=== PATIENT | male | born 1995 | race Caucasian/White ===

== ENCOUNTER 2017-02-10 16:36 | Emergency (ER) | payer BC ==
[~2017-02-10] VITALS: Ht 182.9 cm; Wt 61.0 kg
[2017-02-10 17:12] VITALS: TEMP 37; Ht 182.9 cm; Wt 61.0 kg
--- NOTE | 2017-02-10 17:58 | EMERGENCY ROOM VISIT NOTE ---
ED Visit Note First contact with patient: 17:41 CHIEF COMPLAINT: Chin laceration HISTORY OF PRESENT ILLNESS: This 21-year-old male patient presents emergency department ambulatory, complaining of a laceration to the Chin. The patient states he awoke approximately 2 hours ago, and as he was walking to the bathroom , he tripped over his sweat. He states he fell, striking his chin on the toilet seat. He states he broke his upper left front tooth, and his bottom teeth went through his lip. There was no loss of consciousness, vomiting, or unusual behavior afterwards. Denies neck pain. No headache, nausea, or blurred vision. There is minimal bleeding at this time. The patient rates the pain as throbbing and 5/10. The patient's tetanus shot is up to date. REVIEW OF SYSTEMS: A 6 system review of systems was completed with positives and pertinent negatives listed in the HPI. ALLERGIES: None MEDICATIONS: None PMH: None SOCIAL HISTORY: Is a [employer] student. He [place] campus. The patient denies drug, alcohol, tobacco use. PHYSICAL EXAM: Vital Signs: Reviewed Nurse's notes, vital signs stable. GENERAL : This is a 21-year-old white male, in no acute distress, well-developed, well- nourished. NEURO: The patient is alert and oriented to person place and time. No focal neurological defects. EYES: Pupils are round, equal, and react to light. EOMI. EARS: No hemotympanum. NECK: Supple. No cervical spine tenderness. FACE: No facial bone tenderness or mandibular tenderness. The mouth can open fully. The teeth are well aligned. Tooth #9 is chipped on the medial side. SKIN: There is a 0.5 cm laceration on the lower lip/superior chin , not through the vermilion border. The edges gape apart with traction. There is no active bleeding and no foreign material in the wound. There are no deep structures present. Capillary refill less than two seconds. Normal sensation to light and sharp touch. EMERGENCY DEPARTMENT COURSE: I examined the patient. Verbal consent was obtained to perform the procedure. Using sterile technique the wound was cleansed with Betadine. The area was sterilely draped. 2 ml of 1% buffered lidocaine was used to anesthetize the laceration on the face. Once the patient was anesthetized, the wound was copiously irrigated under pressure with sterile saline. The wound was explored and was as described above. The laceration was repaired using 3 simple interrupted 6-0 nylon sutures with the wound edges being well approximated. The patient tolerated the procedure well. Hemostasis was achieved. The area was cleaned with sterile saline and dressed with bacitracin ointment. The patient was discharged home in good condition. DIFFERENTIAL DIAGNOSIS: Laceration, infection, tooth fracture, closed head injury, concussion, intracranial hemorrhage, and others DIAGNOSIS: Facial laceration Current/Historical Medications Scheduled Penicillin V Potassium (Veetids), 500 MG PO TID Allergies Coded Allergies: No Known Allergies (Unverified , 02/10/17) Vital Signs Date Time Temp Pulse Resp B/P (MAP) Pulse Ox O2 Delivery O2 Flow Rate FiO2 02/10/17 18:54 87 16 102/75 98 02/10/17 17:12 37.0 85 16 110/76 98 Room Air Medications Administered Medications (Trade) Dose Ordered Sig/Ham Route Start Time Stop Time Status Last Admin Dose Admin Penicillin V Potassium (Pen-Vk 500MG Home Pack) 1 homepack UD ONCE PO 02/10/17 18:45 02/10/17 18:46 DC 02/10/17 18:54 1 HOMEPACK Departure Information Impression Primary Impression: Facial laceration Additional Impression: Fracture of tooth Dispostion Home / Self-Care Condition GOOD Prescriptions Penicillin V Potassium (Veetids) 500 Mg Tab 500 MG PO TID for 3 Days, #9 TAB Prov: Caitlin Patrick PA-C 02/10/17 Patient Instructions ED Fx Tooth, ED Laceration Facial Sutr Tape, [facility] Additional Instructions You have received 3 sutures on your lower lip/chin. These sutures are NOT dissolvable and WILL need to be removed by a health care provider in 4-5 days. You can return to the Emergency Department or contact your Primary Care Provider to have the sutures removed. He did have a dental fracture. He should follow-up with a dentist in 2-3 days regarding this. You were prescribed PenVK to be taken three times daily x4 days total. This is an antibiotic. All antibiotics have the potential to cause diarrhea. Stop this medication and contact a medical provider if you were to develop any significant adverse side effects including: wheezing, shortness of breath, passing out, vomiting, or a diffuse rash. Always take antibiotics as directed and COMPLETE the ENTIRE course regardless of the improvement of your symptoms. Proper wound care is essential for adequate wound healing and infection prevention. You can shower and clean the wound with soap and water. Do not scour over the wound, pat dry with a towel. Do not submerse the wound (i.e. bathe or dish wash) until the sutures have been removed. You can use an antibiotic ointment with a dressing over the wound for the next 3-4 days. After this time you may leave the wound dry and open to the air. If crust develops over the wound you can use a Q-tip to apply a 1:1 peroxide:water solution to clean the wound. Look for signs of infection of the wound including: increased pain, swelling, foul discharge, streaking, or increased temperature. If any of these are noticed you should return to the Emergency Department for further assessment and treatment. As with any laceration you may have received nerve damage to the surrounding tissues. This damage may or may not be permanent. You should keep the area covered with sunscreen for the first 6 months to 1 year when at risk for exposure to help minimize scarring. You can also use scar reducing creams or Vitamin E oil to help minimize scarring. For pain control, you can use the following [id number] medicines (if >12 yo): Ibuprofen(Motrin, Advil) may be used for fever or pain. Use 600mg every six hours as needed. Take with food. Avoid using more than 2400mg in a 24 hour period. Do not use 2400mg per day for more than three consecutive days without physician direction. Prolonged inappropriate use can lead to stomach upset or ulcers. (AND/OR) Acetaminophen(Tylenol) may be used for fever or pain. Use 1000mg every six hours as needed. Avoid using more than 3000mg in a 24 hour period. . Return to the emergency department if your symptoms worsen despite treatment course outlined above. Problem Qualifiers Primary Impression: Facial laceration Encounter type: initial encounter Qualified Codes: S01.81XA - Laceration without foreign body of other part of head, initial encounter Additional Impression: Fracture of tooth Encounter type: initial encounter Fracture type: open Qualified Codes: S02.5XXB - Fracture of tooth (traumatic), initial encounter for open fracture
[2017-02-10] MEDS ORDERED: XYLOCAINE 1%/SOD BICARB 20 ML VIAL INFIL ONE (18:00)
[2017-02-10] MEDS ORDERED: PENI-82 PO (18:38)
[2017-02-10] MEDS ORDERED: PENICILLIN HOME PACK 500MG (4 DOSES)BTL PO ONE (18:45)
[2017-02-10 18:54] VITALS: BP 102/75; PULSE 87; O2SAT 98
== END 2017-02-10 18:55 | disposition home or self-care (01) ==
LOC: C.EDB 16:37 → C.EDD 18:55
DX: S01.81XA Laceration without foreign body of other part of head, initial encounter (principal); S02.5XXA Fracture of tooth (traumatic), initial encounter for closed fracture; W01.0XXA Fall on same level from slipping, tripping and stumbling without subsequent striking against object, initial encounter